=== PATIENT | male | born 1955 | race Caucasian/White ===

== ENCOUNTER → 2024-06-23 | Outpatient (CLI) | payer MEDICARE, BC, OTHER, SELFPAY ==
[2024-06-23 09:55] LABS: Collection Type, Urine Clean Catch
[2024-06-23 10:20] LABS: Basophils % (Auto) 0 % (0-2.5); Eosinophils # (Auto) 0.3 Thou/mm3 (0.0-0.5); Eosinophils % (Auto) 4 % (0-10); Hematocrit 34.9 % (41.0-53.0); Hemoglobin 12.1 g/dL (13.5-16.0); Immature Granulocytes % (Auto) 0 % (0-0); Immature Granulocytes Auto 0.03 Thou/mm3 (0.00-0.00); Lymphocytes # (Auto) 1.1 Thou/mm3 (1.0-4.8); Lymphocytes % (Auto) 15 % (10-50); Mean Corpuscular HGB Conc 34.7 g/dl (31.0-37.0); Mean Corpuscular Hemoglobin 32.8 pg (25.0-35.0); Mean Corpuscular Volume 95 fL (80-100); Monocytes # (Auto) 0.5 Thou/mm3 (0.0-0.8); Monocytes % (Auto) 6 % (0-12); Neutrophils # (Auto) 5.4 Thou/mm3 (1.8-7.7); Neutrophils % (Auto) 74 % (37-80); Nucleated Red Blood Cell % 0 /100 WBC (0); Platelet Count 219 Thou/mm3 (140-440); RDW Standard Deviation 45.5 fL (35.1-43.9); Red Blood Count 3.69 Miln/mm3 (4.50-5.90); White Blood Count 7.3 Thou/mm3 (3.8-10.6)
[2024-06-23 10:32] LABS: Parathyroid Hormone Intact 89.5 pg/ml (18.5-88.0)
[2024-06-23 10:37] LABS: Alanine Aminotransferase 19 U/L (10-49); Albumin, Serum 4.5 gm/dL (3.4-4.8); Alkaline Phosphatase 81 U/L (46-116); Anion Gap 9 (7-16); BUN/Creatinine Ratio 10 Ratio (12-20); Bilirubin,Direct 0.1 mg/dL (0.0-0.3); Bilirubin,Total 0.3 mg/dL (0.3-1.2); Blood Urea Nitrogen 27 mg/dL (9-23); Calcium 9.9 mg/dL (8.3-10.6); Cardiac Risk Estimate 2.2 RATIO (4.0-6.7); Chloride 110 mMol/L (98-107); Cholesterol 151 mg/dL (132-200); Creatinine (Component) 2.6 mg/dL (0.6-1.3); Glucose 92 mg/dL (74-106); HDL Cholesterol 69 mg/dL (40-60); LDL Cholesterol,Calculated 71 mg/dL (0-130); Osmolality,Calculated 288 (275-295); Potassium 4.8 mMol/L (3.4-5.1); Sodium 142 mMol/L (136-145); Total Protein 7.2 gm/dL (5.7-8.2); Triglycerides 55 mg/dL (30-150); eGFR 26 See Note
[2024-06-23 10:41] LABS: Bacteria,Urine Rare; Bilirubin,Urine Negative (Negative); Blood,Urine Negative (Negative); Clarity,Urine Clear (Clear/Hazy); Color,Urine Yellow (Lt Yel-Yel); Culture Indicated,Urine Not Indicated; Glucose, Urine Negative (Negative); Hyaline Casts,Urine < 1 /hpf (0-1); Ketones,Urine Trace (Negative); Leukocyte Esterase,Urine Negative (Negative); Nitrite,Urine Negative (Negative); PH,Urine 5.5 (5.0-7.0); Protein,Urine 1+ (Neg - Trace); RBC,Urine 1 /hpf (0-3); Specific Gravity,Urine 1.031 (1.001-1.035); Squamous Epithelial Cell,Urine 1 /hpf (0-5); Urobilinogen,Urine Negative mg/dL (0.0-1.0); WBC,Urine 2 /hpf (0-5)
[2024-06-23 10:51] LABS: Aspartate Amino Transferase 12 U/L (0-34)
[2024-06-23 22:13] LABS: Iron 163 mcg/dL (65-175)
== END | disposition home or self-care (01) ==
LOC: COPL 09:39
PROVIDERS: PCP Family Medicine; Referring Provider Family Medicine; Visit Provider Family Medicine
DX: N18.4 Chronic kidney disease, stage 4 (severe) (principal); E78.5 Hyperlipidemia, unspecified; D50.9 Iron deficiency anemia, unspecified
CPT/HCPCS: 36415; 80048; 80061; 80076; 81001; 83540; 83970; 84100; 85025

== ENCOUNTER → 2024-12-19 | Outpatient (CLI) | payer MEDICARE, BC, OTHER, SELFPAY ==
[2024-12-19 16:49] LABS: Albumin, Serum 4.3 gm/dL (3.4-4.8); Anion Gap 11 (7-16); BUN/Creatinine Ratio 8 Ratio (12-20); Blood Urea Nitrogen 22 mg/dL (9-23); Calcium 9.6 mg/dL (8.3-10.6); Calcium (Corrected) 9.6 mg/dL (8.5-10.1); Carbon Dioxide 22.3 mMol/L (20.0-31.0); Chloride 113 mMol/L (98-107); Creatinine (Component) 2.9 mg/dL (0.6-1.3); Glucose 80 mg/dL (74-106); Osmolality,Calculated 292 (275-295); Phosphorous 2.8 mg/dL (2.4-5.1); Potassium 4.4 mMol/L (3.4-5.1); Sodium 146 mMol/L (136-145); eGFR 23 See Note
== END | disposition home or self-care (01) ==
PROVIDERS: PCP Family Medicine
DX: Z01.812 Encounter for preprocedural laboratory examination (principal)
CPT/HCPCS: 36415; 80069